=== PATIENT | female | born 1990 | race African-American/Black ===

== ENCOUNTER 2018-01-30 01:42 | Emergency (ER) | payer SELFPAY ==
[2018-01-30 03:08] LABS: BILIRUBIN,URINE NEGATIVE (NEG); CLARITY,URINE BLOODY; COLOR,URINE RED; GLUCOSE,URINE NEGATIVE (NEG)
[2018-01-30 03:09] LABS: NITRITE,URINE NEGATIVE (NEG); PROTEIN,URINE >=300 mg/dL (NEG-TRACE); RBC,URINE TNTC /HPF (0-2)
[2018-01-30 03:10] LABS: WBC,URINE TNTC /HPF (0-4)
[2018-01-30 03:11] LABS: BACTERIA,URINE 0 /HPF (0-FEW); SQUAMOUS EPITHELIAL CELL,UR FEW /LPF
[2018-01-30 12:12] LABS: NEG OBC UR NEG; POS OBC UR POS; U PREG PATIENT NEGATIVE (NEG)
== END 2018-01-30 03:30 | disposition home or self-care (01) ==
LOC: ER 01:42
DX: N39.0 Urinary tract infection, site not specified (principal)
CPT/HCPCS: 81001; 81025; 87086; 99284